=== PATIENT | female | born 1960 | race Caucasian/White ===

== ENCOUNTER 2018-03-06 13:18 | Emergency (ER) | END 2018-03-06 13:39 | disposition home or self-care (01) ==

== ENCOUNTER 2018-05-12 19:32 | Emergency (ER) | END 2018-05-12 21:45 | disposition left against medical advice (07) ==

== ENCOUNTER 2018-05-13 10:28 | Emergency (ER) | END 2018-05-13 11:42 | disposition home or self-care (01) ==